=== PATIENT | female | born 1970 | race Caucasian/White ===

== ENCOUNTER 2016-05-16 17:32 | Emergency (ER) | payer OTHER ==
[2016-05-16] MEDS ORDERED: Ondansetron INJ* 2 MG/ML VIAL IV ONE (18:18)
[2016-05-16] MEDS ORDERED: NS 0.9% 1000 ML* 1,000 ML BOLUS ONE (18:18)
--- NOTE | 2016-05-16 18:33 | UC ---
Abdominal Pain Female HPI - HPI Summary HPI Summary: 46 yo female with onset of nausea/watery diarrhea x 6/Head ache and joints aches which started this AM no vomiting had suishi last PM joint aches and myscle aches are worse than her abd pain - History of Current Complaint Chief Complaint: UCGI Stated Complaint: SEVERE ABDOMINAL PAIN Time Seen by Provider: 05/16/16 18:13 Hx Obtained From: Patient Hx Last Menstrual Period: 05/13/15 Onset/Duration: Gradual Onset, Lasting Hours Timing: Constant Severity Initially: Moderate Severity Currently: Moderate Pain Intensity: 7 Location: Diffuse - intermittent Radiates: No Character: Cramping Aggravating Factor(s): Other: Alleviating Factor(s): OTC Analgesics Associated Signs and Symptoms: Positive: Decreased Appetite, Nausea, Diarrhea Allergies/Adverse Reactions: Allergies Allergy/AdvReac Type Severity Reaction Status Date / Time Adhesive Tape Allergy Hives Verified 05/16/16 17:42 Latex Allergy Hives Verified 05/16/16 17:42 Home Medications: Home Medications Ibuprofen TAB* [Motrin TAB* 600 MG] 600 mg PO Q8H PRN 05/16/16 [History Confirmed 05/16/16] PMH/Surg Hx/FS Hx/Imm Hx Previously Healthy: Yes - Surgical History Surgical History: Yes Surgery Procedure, Year, and Place: cyst removal left breast 03/2016 - Family History Known Family History: Positive: Hypertension Negative: Diabetes, Respiratory Disease - Social History Alcohol Use: None Substance Use Type: None Smoking Status (MU): Former Smoker Type: Cigarettes Amount Used/How Often: 1/2 PPD Have You Smoked in the Last Year: Yes Household Exposure Type: Cigarettes Review of Systems Constitutional: Fatigue Skin: Negative Eyes: Negative ENT: Negative Respiratory: Negative Cardiovascular: Negative Gastrointestinal: Abdominal Pain, Diarrhea Genitourinary: Negative Motor: Negative Neurovascular: Negative Musculoskeletal: Arthralgia, Myalgia Neurological: Negative Psychological: Negative All Other Systems Reviewed And Are Negative: Yes Physical Exam Triage Information Reviewed: Yes Appearance: Well-Appearing, No Pain Distress, Well-Nourished Vital Signs: Initial Vital Signs Temp 99.9 F 05/16/16 17:44 Pulse 116 05/16/16 17:44 Resp 18 05/16/16 17:44 BP 129/81 05/16/16 17:44 Pulse Ox 96 05/16/16 17:44 Vital Signs Reviewed: Yes Eyes: Positive: Conjunctiva Clear ENT: Positive: Hearing grossly normal, TMs normal. Negative: Nasal congestion, Nasal drainage, Tonsillar exudate, Trismus, Muffled/hoarse voice Neck: Positive: Supple, Nontender Respiratory: Positive: Lungs clear, Normal breath sounds, No respiratory distress, No accessory muscle use Cardiovascular: Positive: RRR, No Murmur, Pulses Normal, Tachycardia Abdomen Description: Positive: No Organomegaly. Negative: Nontender - diffuse mild tenderness to deep palpation Bowel Sounds: Positive: Present Musculoskeletal: Positive: ROM Intact, No Edema Neurological: Positive: Alert Psychological Exam: Normal Skin Exam: Normal Re-Evaluation - Re-Evaluation First Eval Re-Evaluation Time: 19:55 Change: Improved - now both abd pain and joint mucle aches are 4/10, no vomiting Abd Pain Female Course/Dx - Differential Dx/Diagnosis Provider Diagnoses: acute diarrhea. ? food poisoning Discharge - Discharge Plan Condition: Stable Disposition: HOME Prescriptions: Ciprofloxacin TAB* [Cipro 500 MG TAB*] 500 mg PO BID #4 tab Patient Education Materials: Acute Diarrhea (ED) Forms: *Work Release Referrals: Ramirez Abraham MD [Primary Care Provider] - 4 Days (as planned) Additional Instructions: a stool culture is pending recheck for worsening symptoms recheck in not markedly improved in 48 hours
[2016-05-16] MEDS ORDERED: Ciprofloxacin TAB* 500 MG PO ONE ×2 (19:51)
[2016-05-16 20:17] VITALS: BP 122/73
== END 2016-05-16 20:27 | disposition home or self-care (01) ==
LOC: UCCORT 17:32
DX: R19.7 Diarrhea, unspecified (principal); Z87.891 Personal history of nicotine dependence
CPT/HCPCS: 81003; 87045; 87046; 87899; 96360; 96361; 96374; 99212; 99213; A9270-GY; G0463; J2405

== ENCOUNTER 2016-11-14 14:06 | Emergency (ER) | payer OTHER ==
[2016-11-14 14:19] VITALS: BP 120/80
--- NOTE | 2016-11-14 14:52 | UC ---
Lower Extremity/Ankle HPI - HPI Summary HPI Summary: 46 yo female with right lower corado pain x 8 days no injury no increased excercise/walking/jogging no f/c initially just hurt with wt bearing now hurts at rest swells no relief with motrin no rash - History of Current Complaint Chief Complaint: UCLowerExtremity Stated Complaint: RIGHT LEG PAIN Time Seen by Provider: 11/14/16 14:39 Hx Obtained From: Patient Hx Last Menstrual Period: 10/29/16 Onset/Duration: Gradual Onset, Lasting Days - 8 Severity Initially: Mild Severity Currently: Moderate Pain Intensity: 6 Pain Scale Used: 0-10 Numeric Aggravating Factor(s): Standing, Ambulation Alleviating Factor(s): Rest Able to Bear Weight: Yes - Allergies/Home Medications Allergies/Adverse Reactions: Allergies Allergy/AdvReac Type Severity Reaction Status Date / Time Adhesive Tape Allergy Hives Verified 11/14/16 14:19 Latex Allergy Hives Verified 11/14/16 14:19 Home Medications: Home Medications Cholecalciferol TAB* [Vitamin D TAB*] 1,000 unit PO DAILY 11/14/16 [History Confirmed 11/14/16] buPROPion TAB* [Wellbutrin TAB*] 75 mg PO DAILY 11/14/16 [History Confirmed ] PMH/Surg Hx/FS Hx/Imm Hx Previously Healthy: Yes - Surgical History Surgical History: Yes Surgery Procedure, Year, and Place: cyst removal left breast 03/2016 - Family History Known Family History: Positive: Hypertension, Other - mom with pancreatic CA Negative: Diabetes, Respiratory Disease - Social History Alcohol Use: None Substance Use Type: None Smoking Status (MU): Former Smoker Type: Cigarettes Amount Used/How Often: 1/2 PPD Have You Smoked in the Last Year: Yes When Did the Patient Quit Smoking/Using Tobacco: 2.5 YRS Household Exposure Type: Cigarettes Review of Systems Constitutional: Negative Skin: Negative Eyes: Negative ENT: Negative Respiratory: Negative Cardiovascular: Negative Gastrointestinal: Negative Genitourinary: Negative Motor: Negative Neurovascular: Negative Musculoskeletal: Negative Neurological: Negative Psychological: Negative Is Patient Immunocompromised?: No All Other Systems Reviewed And Are Negative: Yes Physical Exam Triage Information Reviewed: Yes Appearance: Well-Appearing, No Pain Distress, Well-Nourished Vital Signs: Initial Vital Signs Temp 97.8 F 11/14/16 14:11 Pulse 99 09/24/17 14:11 Resp 18 11/14/16 14:11 BP 120/80 11/14/16 14:11 Pulse Ox 99 11/14/16 14:11 Eyes: Positive: Conjunctiva Clear ENT: Positive: Hearing grossly normal. Negative: Nasal congestion, Nasal drainage, Trismus, Muffled/hoarse voice Neck: Positive: Supple, Nontender Respiratory Exam: Normal Respiratory: Positive: Lungs clear, Normal breath sounds, No respiratory distress, No accessory muscle use Cardiovascular: Positive: RRR, No Murmur Abdomen Description: Positive: No Organomegaly. Negative: CVA Tenderness (R), CVA Tenderness (L), Peritoneal Signs, Pulsatile Mass, Splenomegaly Musculoskeletal: Positive: ROM Intact, No Edema Neurological: Positive: Alert Psychological Exam: Normal Skin Exam: Other Diagnostics - Radiology No standard instances Xray Interpretation: No Acute Changes Radiology Interpretation Completed By: ED Physician Lower Extremity Course/Dx - Differential Dx/Diagnosis Provider Diagnoses: Right corado pain of uncertain cause. ? stress fracture Discharge - Discharge Plan Condition: Stable Disposition: HOME Referrals: Nilton Willett MD [Medical Doctor] - As Soon As Possible Additional Instructions: I am unsure of the cause of your corado pain A normal XR does not rule out a stress fracture I think you should see an orthopedist Crutches with none wt bearing continue aleve ice twice daily Images Front/Back of Body, Lg ([place]): 1 - tender along tibia
--- NOTE | 2016-11-14 15:30 | RAD ---
Indication: Right leg pain. 2 views of the right lower leg demonstrates no fracture. No other bone or joint abnormality is noted. IMPRESSION: NO FRACTURE OF THE RIGHT LOWER LEG IS PRESENT.
== END 2016-11-14 15:33 | disposition home or self-care (01) ==
LOC: UCCORT 14:06
DX: M79.661 Pain in right lower leg (principal)
CPT/HCPCS: 99212; G0463

== ENCOUNTER 2018-05-17 10:34 | Emergency (ER) | payer OTHER ==
[2018-05-17 11:34] VITALS: BP 94/75
[2018-05-17 11:52] LABS: Influenza A Molecular NEGATIVE (Negative); Influenza B Molecular NEGATIVE (Negative)
--- NOTE | 2018-05-17 12:00 | UC ---
FLU HPI - HPI Summary HPI Summary: Pt presents with c/o sudden onset of myalgia, chills, fatigue nasal congestion and cough X 2 days. - History of Current Complaint Chief Complaint: UCRespiratory Stated Complaint: JIMENEZ,FATIGUE,CONGESTION Time Seen by Provider: 05/17/18 11:47 Hx Obtained From: Patient Hx Last Menstrual Period: 10/29/16 ?: No Onset/Duration: Sudden Onset, Lasting Days, Still Present Severity Currently: Moderate Severity Initially: Moderate Pain Intensity: 4 Associated Signs & Symptoms: Positive: Fever, Myalgia, Cough, Nasal Congestion Related Hx: Possible Flu/Infectious Exposure - Risk Factors Influenza Risk Factors: Negative - Allergy/Home Medications Allergies/Adverse Reactions: Allergies Allergy/AdvReac Type Severity Reaction Status Date / Time Adhesive Tape Allergy Hives Verified 11/14/16 14:19 latex Allergy Hives Verified 05/17/18 11:27 Home Medications: Home Medications C/Ech/Stjwort/Eldr/Sging/Hrb30 [Cold Defense Fighter] 2 cap PO ONCE PRN [History Confirmed 05/17/18] Multivitamin [Multivitamins] 1 cap PO DAILY 05/17/18 [History Confirmed 05/17/18 ] PMH/Surg Hx/FS Hx/Imm Hx Previously Healthy: Yes - Surgical History Surgical History: Yes Surgery Procedure, Year, and Place: cyst removal left breast 03/2016 - Family History Known Family History: Positive: Hypertension, Other - mom with pancreatic CA Negative: Diabetes, Respiratory Disease - Social History Occupation: Employed Full-time Lives: With Family Alcohol Use: None Substance Use Type: None Smoking Status (MU): Former Smoker Type: Cigarettes Amount Used/How Often: 1/2 PPD Have You Smoked in the Last Year: Yes When Did the Patient Quit Smoking/Using Tobacco: 2014 Household Exposure Type: Cigarettes Review of Systems All Other Systems Reviewed And Are Negative: Yes Constitutional: Positive: Fever, Chills, Fatigue Skin: Positive: Negative Eyes: Positive: Negative ENT: Positive: Sinus Congestion Respiratory: Positive: Cough Cardiovascular: Positive: Negative Gastrointestinal: Positive: Negative Genitourinary: Positive: Negative Motor: Positive: Negative Neurovascular: Positive: Negative Musculoskeletal: Positive: Myalgia Neurological: Positive: Negative Psychological: Positive: Negative Is Patient Immunocompromised?: No Physical Exam Triage Information Reviewed: Yes Appearance: Ill-Appearing Vital Signs: Initial Vital Signs Temp 98 F 05/17/18 11:30 Pulse 87 05/17/18 11:30 Resp 16 05/17/18 11:30 BP 94/75 05/17/18 11:30 Pulse Ox 99 05/17/18 11:30 Vital Signs Reviewed: Yes Eye Exam: Normal ENT: Positive: Nasal congestion Dental Exam: Normal Neck exam: Normal Respiratory Exam: Normal Cardiovascular Exam: Normal Musculoskeletal Exam: Normal Neurological Exam: Normal Psychological Exam: Normal Skin Exam: Normal Flu Course/Dx - Differential Dx/Diagnosis Differential Diagnosis/HQI/PQRI: Influenza, Upper Respiratory Infection Provider Diagnosis: Viral syndrome Discharge - Sign-Out/Discharge Documenting (check all that apply): Patient Departure All imaging exams completed and their final reports reviewed: No Studies - Discharge Plan Condition: Stable Disposition: HOME Patient Education Materials: Viral Syndrome (ED) Forms: *Work Release Referrals: Ramirez Abraham MD [Primary Care Provider] - If Needed - Billing Disposition and Condition Condition: STABLE Disposition: Home
== END 2018-05-17 12:09 | disposition home or self-care (01) ==
LOC: UCCORT 10:34
DX: B34.9 Viral infection, unspecified (principal); M79.10 Myalgia, unspecified site; R53.83 Other fatigue; R09.81 Nasal congestion; R05 Cough; Z91.09 Other allergy status, other than to drugs and biological substances; Z91.040 Latex allergy status; Z87.891 Personal history of nicotine dependence
CPT/HCPCS: 99211; G0463